=== PATIENT | male | born 1960 | race African-American/Black ===

== ENCOUNTER 2017-08-24 00:31 | Emergency (ER) | payer MEDICAID ==
[~2017-08-24] VITALS: Ht 177.8 cm; Wt 97.5 kg
[~2017-08-24 00:31] MED LIST: CARISOPRODOL350 PO; PRE125 PO
[2017-08-24 00:37] VITALS: Ht 177.8 cm; Wt 97.5 kg
[2017-08-24 06:48] LABS: CALCIUM 8.5 mg/dL (8.5-10.1); CHLORIDE SERUM 106 mmol/L (98-107); CREATININE SERUM 1.2 mg/dL (0.7-1.3); GFR1 > 60 mL/min; GLUCOSE SERUM 89 mg/dL (74-106); POTASSIUM SERUM 3.9 mmol/L (3.5-5.1); SODIUM SERUM 136 mmol/L (136-145)
[2017-08-24 06:52] LABS: BASOPHIL % 0.8 % (0-2)
[2017-08-24 06:54] LABS: PLATELET COUNT 740 x10^3mcL (130-400)
[2017-08-24 06:55] LABS: rbc morphology (normal/abnorm) ABNORMAL (NORMAL)
[2017-08-24 07:01] LABS: ALBUMIN 3.4 g/dL (3.4-5.0); ALKALINE PHOSPHATASE 91 U/L (46-116); ALT/SGPT 25 U/L (16-63); AST/SGOT 19 U/L (15-37); BILIRUBIN TOTAL 0.2 mg/dL (0.20-1.00); FREE T4 0.89 ng/dL (0.76-1.46)
[2017-08-24 07:27] LABS: microscopic required? NO
[2017-08-24 08:00] LABS: urine erythrocyte NEGATIVE (NEGATIVE)
[2017-08-24 08:16] LABS: AMPHETAMINE QUAL UR POSITIVE (NEG <=1000)
[2017-08-24 10:06] VITALS: BP 169/80
== END 2017-08-24 10:06 | disposition home or self-care (01) ==
LOC: ED 00:31
PROVIDERS: Emergency Medicine
DX: G89.29 Other chronic pain (principal); M54.9 Dorsalgia, unspecified; I10 Essential (primary) hypertension
CPT/HCPCS: 84439; Q0092